=== PATIENT | male | born 1980 | race Two or more races ===

== ENCOUNTER 2018-08-14 13:50 | Emergency (ER) | payer MEDICAID ==
[~2018-08-14] VITALS: Ht 175.3 cm; Wt 86.0 kg
[2018-08-14 13:59] VITALS: BP 170/94
== END 2018-08-14 15:07 | disposition left against medical advice (07) ==
LOC: ER 13:50
DX: R46.89 Other symptoms and signs involving appearance and behavior (principal); Z53.21 Procedure and treatment not carried out due to patient leaving prior to being seen by health care provider